=== PATIENT | male | born 1970 | race Caucasian/White ===

== ENCOUNTER 2016-10-10 16:54 | Emergency (ER) | payer BC ==
--- NOTE | ~2016-10-10 | US113 ---
[facility] A Service of [facility] RADIOLOGY TEXT RESULTS PATIENT: HELENE CEVALLOS LOCATION: SED : 74 UNIT #: [id number] AGE: [address]: Dre Philip MD SEX: M ORDER DR: [id number] [address] [id number] MR#: [id number] Acc #: [id number] NAME: HELENE CEVALLOS : 1970 SEX: M STUDY DATE/TIME: 10/10/2016 18:40 UNIT: SED ROOM: STUDY DESCRIPTION: US Scrotal Duplex Complete Attending Physician: Dre Philip M.D. Ordering Physician: Marcus Martinez M.D. Primary Care Physician: Rolly Mtz MEDICAL IMAGING REPORT This report is preliminary unless electronic signature is present. EXAM Scrotal and testicular ultrasound with Doppler HISTORY Left testicle swelling for 4 days. FINDINGS Ultrasound examination of the scrotum and testes was performed with golden-scale and Doppler. There is no testicular mass or enlargement. Increased blood flow to the left testicle and epididymis on Doppler and relative enlargement of the left epididymis, suggesting left epididymo-orchitis. Normal blood flow in the right testicle. IMPRESSION 1. Findings are characteristic of left epididymo-orchitis with hypervascularity to the left testicle and epididymis as compared to the right and generalized left epididymal enlargement. 2. Right testicle and epididymis are normal. Dictated by... Presley Noonan M.D. THIS IS AN ELECTRONICALLY VERIFIED REPORT Presley Noonan M.D. at 10/12/2016 12:06 AM KADEEM/elsie TD: 10/11/2016 04:23 JOB #: [id number] MEDICAL IMAGING REPORT [facility] A Service of [facility] RADIOLOGY TEXT RESULTS PATIENT: HELENE CEVALLOS LOCATION: SED : 74 UNIT #: [id number] AGE: [address]: Dre Philip MD SEX: M ORDER DR: Page 1 of 1
[2016-10-10] MEDS ORDERED: LISINOPRIL (17:08)
[2016-10-10] MEDS ORDERED: NORVASC PO (17:08)
[2016-10-10] MEDS ORDERED: LEXAPRO (17:08)
[2016-10-10 18:18] LABS: BASOPHIL# 0.1 X10e3 (0-0.3); BASOPHIL% 0.4 % (0-2.5); EOSINOPHIL# 0.1 X10e3 (0-0.7); EOSINOPHIL% 0.3 % (0.0-7.0); HEMATOCRIT 49.2 % (38.0-50.0); HEMOGLOBIN 17.1 gm/dL (13.0-16.0); LYMPHOCYTE# 1.8 X10e3 (1.0-3.5); LYMPHOCYTE% 8.1 % (17.0-45.0); MEAN CELL VOLUME 90.1 FL (83-96); MEAN CORPUSCULAR HEMOGLOBIN 31.3 PG (28-34); MEAN CORPUSCULAR HGB CONC 34.7 g/dL (30-36); MEAN PLATELET VOLUME 6.8 FL (6.5-11.5); MONOCYTE# 1.4 X10e3 (0-1.0); MONOCYTE% 6.4 % (3.0-12.0); NEUTROPHIL# 18.5 X10e3 (1.5-7.1); NEUTROPHIL% 84.8 % (40-75); PLATELET COUNT 182 X10e3 (140-420); RED BLOOD COUNT 5.46 X10e (3.90-5.60); RED CELL DISTRIBUTION WIDTH 14.3 % (11.0-15.5); WHITE BLOOD COUNT 21.8 X10e3 (4.0-10.5)
[2016-10-10 18:21] LABS: DIFF IND YES
[2016-10-10 18:27] LABS: URINE SOURCE CLEAN CATCH
[2016-10-10 18:29] LABS: URINE APPEARANCE HAZY; URINE BLOOD 1+ (NEG); URINE COLOR AMBER; URINE GLUCOSE NEG (NORM); URINE KETONE TRACE (NEG); URINE LEUKOCYTE ESTERASE NEG (NEG); URINE NITRATE POS (NEG); URINE PROTEIN 1+ (NEG); URINE SPECIFIC GRAVITY >=1.030 (1.003-1.035)
[2016-10-10 18:31] LABS: MICRO INDICATED? YES; URINE BILIRUBIN POS (NEG)
[2016-10-10 18:32] LABS: PLATELET ESTIMATE NORMAL (NORMAL); RBC NORMAL YES
[2016-10-10 18:35] LABS: CULTURE INDICATED? YES; URINE BACTERIA 1+ (NEG); URINE SQUAMOUS EPITHELIAL CELL FEW /[HPF]; URINE WBC 25-50 /[HPF] (0-5)
[2016-10-10 18:35] LABS: CALCIUM SERUM 9.1 mg/dL (8.4-10.2); CREATININE SERUM 1.4 mg/dL (0.6-1.4); GLOM FILT RATE Estimated 61.1 mL/min (>60); POTASSIUM 4.1 mmol/L (3.5-5.1)
[2016-10-10 18:36] LABS: URINE MUCUS PRESENT
== END 2016-10-10 19:55 | disposition home or self-care (01) ==
LOC: SED 16:54
PROVIDERS: Emergency Medicine
DX: N45.1 Epididymitis (principal); N45.2 Orchitis; F41.9 Anxiety disorder, unspecified; I10 Essential (primary) hypertension; Z79.899 Other long term (current) drug therapy
CPT/HCPCS: 36415; 80048; 81003; 85025; 87040; 87086; 93975; 96374; 99284; J0696